=== PATIENT | male | born 1955 | race Caucasian/White ===

== ENCOUNTER → 2019-02-05 | Outpatient (CLI) | payer OTHER ==
--- NOTE | 2019-02-05 16:10 | PCVCIMAG ---
APPROVED REPORT Study performed: 02/05/2019 13:46:15 EXAM: Comprehensive 2D, Doppler, and color-flow Echocardiogram Patient Location: Echo lab Status: routine BSA: 2.49 HR: 56 bpmBP: 128/74 mmHg Rhythm: Bradycardia Other Information Study Quality: Adequate Risk Factors: Cardiac Risk Factors: HTN, Hyperlipidemia, DM Indications Bradycardia Dyspnea 2D Dimensions IVSd: 14.38 (7-11mm) LVDd: 59.27 mm PWd: 14.27 (7-11mm)Ascending Ao: 37.82 (22-36mm) LVDs: 43.06 (25-40mm) Left Atrium: 47.53 (27-40mm) Aortic Root: 34.25 mm LV Single Plane 4CH: 50.46 % LV Single Plane 2CH: 48.04 % Biplane EF: 49.6 % Volumes Left Atrial Volume (Systole) Single Plane 4CH: 133.04 mLSingle Plane 2CH: 139.14 mL LA ESV Index: 59.00 mL/m2 Aortic Valve AoV Peak Gaston.: 1.70 m/s AO Peak Gr.: 11.63 mmHgLVOT Max P.94 mmHg LVOT Max V: 0.99 m/s Mitral Valve E/A Ratio: 0.9 MV Decel. Time: 335.50 ms MV E Max Gaston.: 0.59 m/s MV A Gaston.: 0.68 m/s IVRT: 121.11 ms Pulmonary Valve PV Peak Gaston.: 1.09 m/sPV Peak Gr.: 4.75 mmHg Pulmonary Vein P Vein S: 0.47 m/sP Vein A: 0.35 m/s P Vein D: 0.56 m/sP Vein A Dur.: 103.8 msec P Vein S/D Ratio: 0.84 Tricuspid Valve TR Peak Gaston.: 2.52 m/s TR Peak Gr.: 25.43 mmHg Left Ventricle Left ventricle is mildly dilated. There is normal LV segmental wall motion. Mild to moderate concentric left ventricular hypertrophy. Left ventricular systolic function is mildly decreased. LVEF is 45-50%. Grade I - abnormal relaxation pattern. Right Ventricle The right ventricle is normal size. The right ventricular systolic function is normal. Atria Left atrium is severely dilated. The right atrium size is normal. Aortic Valve The aortic valve is normal in structure. No aortic regurgitation is present. There is no aortic valvular stenosis. Mitral Valve The mitral valve is normal in structure. Mild anterior leaflet prolapse. Mild mitral regurgitation. No evidence of mitral valve stenosis. Tricuspid Valve The tricuspid valve is normal in structure. Mild tricuspid regurgitation with PAP of 32 mmHg. Pulmonic Valve The pulmonary valve is normal in structure. Mild pulmonic regurgitation. Great Vessels The aortic root is normal in size. IVC is normal in size and collapses >50% with inspiration. Pericardium There is no pericardial effusion. There is no pleural effusion. <Conclusion> Left ventricle is mildly dilated. Mild to moderate concentric left ventricular hypertrophy. Left ventricular systolic function is mildly decreased. LVEF is 45-50%. Grade I - abnormal relaxation pattern. The right ventricle is normal size. Left atrium is severely dilated. The aortic valve is normal in structure. Mild mitral regurgitation. The mitral valve is normal in structure. Mild anterior leaflet prolapse. Mild tricuspid regurgitation with PAP of 32 mmHg. The aortic root is normal in size. There is no pericardial effusion.
== END | disposition home or self-care (01) ==
LOC: PCVCIMAG 13:36
PROVIDERS: ATTEND Internal Medicine Cardiovascular Disease
DX: I08.1 Rheumatic disorders of both mitral and tricuspid valves (principal); R00.1 Bradycardia, unspecified; R06.00 Dyspnea, unspecified
CPT/HCPCS: 93306

== ENCOUNTER → 2019-02-19 | Outpatient (CLI) | payer OTHER ==
--- NOTE | 2019-02-19 15:28 | PCVCIMAG ---
APPROVED REPORT Study performed: 02/19/2019 11:41:15 Exam: Stress Echocardiogram Indication: Bradycardia Patient Location: Echo lab Stress Nurse: Natacha Quintero RN Status: routine Ht: 6 ft 0 in HR: 63 bpm BP: 110/80 mmHg Rhythm: NSR Medical History Medical History: Diabetes, HTN, Hyperlipidemia, Renal disease Procedure The patient underwent an Exercise Stress Test using the Damien Protocol. Blood pressure, heart rate, and EKG were monitored. An Echocardiogram was performed by industrial cleaning technician in four stages in quad fashion. At peak stress, four selected images were obtained and placed side by side with resting images for comparison. Stress Test Details Stress Test: Exercise stress testing was performed using a Damien protocol. HR Resting HR: 63 bpmMax Heart Rate (APMHR): 156 bpm Max HR Achieved: 141 bpmTarget HR (85% APMHR): 132 bpm % of APMHR: 90 Recovery HR: 68 bpm HR response to stress: Normal HR response to stress BP Resting BP: 110/80 mmHg Max BP: 190/80 mmHg Recovery BP: 154/82 mmHg BP response to stress: Normal blood pressure response to stress. ECG Resting ECG: Sinus Rhythm Stress ECG: Sinus Rhythm Recovery ECG: Sinus Rhythm Clinical Reason for Termination: Maximal effort Exercise duration: 5 min sec Highest Stage Achieved: Stage 2: 2.5 mph at 12% grade. Exercise capacity: 7.00 METs Overall Exercise Capacity for Age: Poor Pre-Stress Echo The resting Echocardiogram showed abnormal left ventricular contractility with an estimated Ejection Fraction of about 45-50%. Normal wall motion in all segments on baseline images. Post-Stress Echo The stress Echocardiogram showed normal left ventricular contractility with an estimated Ejection Fraction of about 55%. Normal augmentation of wall motion in all segments on post stress images. Clinical No clinical or ECG evidence for ischemia. Conclusion Clinical Response: Non-ischemic Exercise Capacity: Below Average Stress ECG Response: Non-ischemic Stress Echo Images: Non-ischemic The left ventricle is normal in size and wall thickness in both the rest and stress images. No significant vavular abnormalities. Other Information Study Quality: Technically Difficult <Conclusion> The left ventricle is normal in size and wall thickness in both the rest and stress images. No significant vavular abnormalities.
== END | disposition home or self-care (01) ==
LOC: PCVCIMAG 11:14
PROVIDERS: ATTEND Internal Medicine Cardiovascular Disease
DX: E78.5 Hyperlipidemia, unspecified (principal); R00.1 Bradycardia, unspecified; I12.9 Hypertensive chronic kidney disease with stage 1 through stage 4 chronic kidney disease, or unspecified chronic kidney disease; N18.3 Chronic kidney disease, stage 3 (moderate); Z82.49 Family history of ischemic heart disease and other diseases of the circulatory system
CPT/HCPCS: 93325; 93351